=== PATIENT | female | born 1990 | race Caucasian/White ===

== ENCOUNTER 2017-05-26 10:17 | Day surgery (SDC) | payer OTHER ==
[2017-05-24 10:34] VITALS: BMI 27.7
--- NOTE | 2017-05-26 09:21 | HP ---
History & Physical Update - History History: No Change - Physical Physical: No Change - Assessment Assessment: No Change - Plan Plan: No Change (Consent obtained for thyroidectomy, lobectomy or total thyroidectomy. Nerve monitoring. Complications, of bleeding, voice change , hoarseness, weakness of recurrent laryngeal nerve , hypocalcmia, and hypoparathyroidism , explained. Consent obtained. Alternatives explained.)
[2017-05-26] MEDS ORDERED: MIDAZOLAM HCL 2 MG/2 ML SINGLE DOSE VIAL ONE ×2 (13:43)
[2017-05-26] MEDS ORDERED: SUCCINYLCHOLINE CHLORIDE 200 MG/10 ML VIAL ONE (13:49)
[2017-05-26] MEDS ORDERED: PROPOFOL 20 ML ONE ×2 (13:50→14:03)
[2017-05-26] MEDS ORDERED: ePHEDrine SULFATE 50 MG/1 ML AMPULE ONE (14:39)
--- NOTE | 2017-05-26 15:56 | OP ---
Operative Note - Note: Operative Date: 05/26/17 Pre-Operative Diagnosis: Thyroid goiter Operation: Left thyroid lobectomy, use of Nervana nerve monitor, and identification of parathyroid with KATHERIN technic. Findings: Large nodule in left lobe of thyroid, benign. Post-Operative Diagnosis: Same as Pre-op (Unonodular thyroid goiter.) Surgeon: Oliver Abrams Anesthesia: General Specimens Removed: Left lobe of thyroid. Estimated Blood Loss (mls): 10 Instrument used (Debridements only): Nims nerve monitor Operative Report Dictated: Yes
[2017-05-26] MEDS ORDERED: ONDANSETRON 4 MG/2 ML VIAL ONE (16:05)
[2017-05-26] MEDS ORDERED: ONDANSETRON 4 MG/2 ML VIAL IVPUSH PRN (16:12)
[2017-05-26] MEDS ORDERED: PROMETHAZINE HCL 25 MG/1 ML VIAL IVPUSH PRN (16:12)
[2017-05-26] MEDS ORDERED: LACTATED RINGERS SOLUTION 1,000 ML IV SCH (16:15)
[2017-05-26] MEDS: oxyCODONE HCL 5 MG TABLET PO PRN (18:45)
[2017-05-26] MEDS ORDERED: oxyCODONE HCL 5 MG TABLET ONE (18:47)
[2017-05-27] MEDS: oxyCODONE HCL 5 MG TABLET PO PRN (07:14)
[2017-05-27 10:21] VITALS: BP 111/50; PULSE 85; TEMP 98.8
--- NOTE | 2017-05-27 13:15 | OP ---
DATE OF OPERATION: 05/26/2017 PREOPERATIVE DIAGNOSIS: Unilateral thyroid goiter. POSTOPERATIVE DIAGNOSIS: Unilateral thyroid goiter. OPERATIVE PROCEDURE: Left thyroid lobectomy with the use of Nerveana nerve monitoring device. SURGEON: Mayi Abrams MD ANESTHESIA: General. INDICATION FOR PROCEDURE: This 26-year-old woman had an enlarging nodule in the left lobe of the thyroid. She had a FNA which was benign. The mass was expanding in size. The patient was brought in for a thyroid lobectomy. Risks, benefits, and complications were discussed with the patient. Consent was obtained. OPERATIVE DESCRIPTION: The patient was brought to the operating room. General anesthesia was administered. The Nerveana nerve monitoring device was used, including the appropriate endotracheal tube. The patient was positioned with the neck in extension. Timeout was called. The incision was made along a skin crease one fingerbreadth above the clavicle from one sternocleidomastoid muscle to another. This was deepened into the skin, subcutaneous tissue and the platysma. Superior and inferior skin flaps were then raised between the platysma and the deep cervical fascia, superiorly up to the hyoid bone and inferiorly anterior to and below the clavicle on either side. The sternocleidomastoid muscles were freed from a flap on either side. The strap muscles were then divided in the midline from the hyoid bone down to the suprasternal notch. The thyroid gland was exposed. The strap muscles were then retracted and the thyroid gland was exposed. The right lobe of the thyroid gland appeared normal. There was a large nodule, larger than 4 cm in diameter, in the left lobe of the thyroid. This was carefully delivered into the wound. The gland was then mobilized medially. The rest of the gland was normal. It was then decided to do a left thyroid lobectomy. The middle thyroid vein was divided between clips as close to the gland as possible. The superior thyroid vessels were also divided as close to the gland as possible between clips and the Harmonic scalpel. The inferior thyroid vessels were then also identified. This was followed and divided as close to the gland as possible. It was divided between clips and the Harmonic scalpel. Attempt was made to spare the blood supply to the superior and inferior parathyroid glands. This was left intact with its blood supply intact and dissecting medial to the parathyroid, between the thyroid and the parathyroid. The gland was then mobilized medially across the pretracheal fascial plane. The left recurrent laryngeal nerve was identified and preserved. This was monitored using the Nerveana nerve monitoring device with appropriate response to simulation of the recurrent laryngeal nerve. The Ruiz ligament was then divided between clips. The gland was mobilized across the midline and then divided at the isthmus. A Shaina clamp was placed across the isthmus and the gland was divided. The specimen of the left lobe of the thyroid gland with the isthmus was sent to Pathology for frozen section. Frozen section diagnosis was benign. The isthmus was suture ligated with 3-0 Vicryl sutures. Hemostasis was satisfactory. The nerve was intact after completion of the procedure with appropriate response to stimulation of the recurrent laryngeal nerve with the Nerveana nerve monitoring device. The wound was irrigated. Hemostasis was satisfactory. The strap muscles were then approximated with interrupted 3-0 Vicryl sutures, platysma approximated with buried interrupted 3-0 Vicryl sutures, the subcutaneous was approximated with buried interrupted 3-0 Vicryl sutures, and the skin approximated with continuous 4-0 Monocryl sutures in a running subcuticular fashion. Dermabond was applied across the skin edges. Estimated blood loss was less than 10 mL. Sponge count and instrument count were correct. The patient tolerated the procedure well, was extubated, and sent to the recovery room in satisfactory and stable condition. Michelle [id number]
--- NOTE | 2017-05-29 13:28 | PATH ---
Surgical Pathology Report Patient Name: TIMMY DE PAZ [facility]. Rec. #: [id number] /Age/Gender: 1990 (Age: 26) / F Account: [id number] Location: AMBULATORY SURG Taken: 05/26/2017 Received: 05/26/2017 Reported: 05/29/2017 Physicians: Mayi Abrams M.D. Specimen(s) Received LEFT LOBE AND ISTHMUS Clinical History Thyroid goiter Intraoperative Consult Diagnosis Left lobe/Isthmus, touch prep and frozen section: Benign on textile machinery sales representative section. Dr. Bueno, 05/26/17. Final Diagnosis TYROID GLAND, LEFT LOBE AND ISTHMUS, LOBECTOMY: BENIGN NODULAR GOITER WITH DOMINANT ADENOMATOID NODULE (5.1 CM) WITH CYSTIC AND DEGENERATIVE CHANGES. NO MALIGNANCY IDENTIFIED. Electronically Signed Raymond Bueno M.D. Gross Description Specimens C. Fresh for frozen section labeled "left lobe isthmus" and is a 50 gram, 7.5 x 5.3 x 3.8 cm portion of thyroid tissue with a well-demarcated 5.1 cm in greatest dimension nodule with a cystic interior. No indurated or grossly papillary areas are identified. The remainder of the thyroid gland shows slightly nodular red tissue. A touch prep is prepared. A textile machinery sales representative section is frozen and a frozen remainder is divided and submitted in cassettes 1a and 1b. Additional textile machinery sales representative sections are submitted for permanent section in cassettes 2-10. [facility]/05/26/2017 [facility]/05/26/2017
== END 2017-05-27 12:15 | disposition home or self-care (01) ==
LOC: JASUSAT 10:17 → J8W 19:20 → JASUSAT 05-27 12:15
PROVIDERS: ATTEND Specialist
PROC: 0GTG0ZZ Resection of Left Thyroid Gland Lobe, Open Approach (ICD-10-PCS; principal; 2017-05-26 11:30)
DX: E04.1 Nontoxic single thyroid nodule (principal)
CPT/HCPCS: 84703; 88307-TC; 88331-TC; 88333; 94760

== ENCOUNTER 2018-07-15 04:48 | Emergency (ER) | payer OTHER ==
[2018-07-15 05:04] VITALS: BP 122/80; PULSE 98; TEMP 98.2; BMI 27.3
[2018-07-15] MEDS ORDERED: ACETAMINOPHEN INJECTION 100 ML IVPB ONE (05:06)
[2018-07-15] MEDS ORDERED: ACETAMINOPHEN 1000 MG/100 ML VIAL (NON FORMULARY) IVPB ONE (05:06)
[2018-07-15 05:12] LABS: BASO % 0.2 % (0-2.0); EOS % 1.5 % (0-4.5); HEMATOCRIT 38.5 % (32.4-45.2); HEMOGLOBIN 13.1 GM/dL (10.7-15.3); LYMPH % 39.6 % (8-40); MCH 31.3 pg (25.7-33.7); MCHC 33.9 g/dl (32.0-36.0); MEAN CELL VOLUME 92.2 fl (80-96); MONO % 7.3 % (3.8-10.2); NEUT % 51.4 % (42.8-82.8); PLATELET COUNT 257 K/MM3 (134-434); RBC 4.18 M/mm3 (3.60-5.2); RDW 13.4 % (11.6-15.6); WHITE BLOOD COUNT 9.7 K/mm3 (4.0-10.0)
[2018-07-15] MEDS ORDERED: SODIUM CHLORIDE 0.9% 500 ML INFUS.BAG IV ONE (05:12)
--- NOTE | 2018-07-15 05:19 | PDOC ---
History of Present Illness - General Chief Complaint: Pain, Acute Stated Complaint: LEFT LOWER BACK PAIN Time Seen by Provider: 07/15/18 04:59 - History of Present Illness Initial Comments: 07/15/18 05:14 27 yo F w a pmh of asthma, gestational diabetes, is here with sudden onset LLQ flank pain that radiates to the groin. The pain began at 9 pm tonight and was excruciating in nature. The patient did not take anything for the pain but it became too bad for her to bear so she came into the ED. She was lying down when the pain began. Pertinent family hx - sister has hx of kidney stones. She denies recent fevers, chills, or infections. She denies dysuria, frequency, urgency or hematuria. Past History - Past Medical History Allergies/Adverse Reactions: Allergies Allergy/AdvReac Type Severity Reaction Status Date / Time No Known Allergies Allergy Verified 07/15/18 04:59 Home Medications: Ambulatory Orders Montelukast Na [Singulair -] 10 mg PO HS 07/15/18 Oxycodone HCl/Acetaminophen [Percocet 5-325 mg Tablet -] 1 combo PO Q6H PRN #10 tablet MDD 4 07/15/18 Phentermine HCl 37.5 mg PO DAILY 07/15/18 Tamsulosin HCl 0.4 mg PO DAILY #7 capsule 07/15/18 Asthma: Yes Cancer: No Cardiac Disorders: No Diabetes: No (gest,ins.dependant) Disorders: Yes (FALLING BLADDER) HTN: No Seizures: No Thyroid Disease: Yes (GOITER) - Surgical History Abdominal Surgery: Yes (UMBILICAL HERNIA) - Immunization History Immunization Up to Date: Yes - Suicide/Smoking/Psychosocial Hx Smoking Status: No Smoking History: Current every day smoker Have you smoked in the past 12 months: Yes Number of Cigarettes Smoked Daily: 5 Information on smoking cessation initiated: No 'Breaking Loose' booklet given: 08/21/16 Hx Alcohol Use: No Drug/Substance Use Hx: No Substance Use Type: None Hx Substance Use Treatment: No Review of Systems - Review of Systems Comments:: 07/15/18 05:19 CONSTITUTIONAL: Absent: fever, chills, diaphoresis, generalized weakness, malaise, loss of appetite HEENT: Absent: rhinorrhea, nasal congestion, throat pain, throat swelling, difficulty swallowing, mouth swelling, ear pain, eye pain, visual Changes CARDIOVASCULAR: Absent: chest pain, syncope, palpitations, irregular heart rate, lightheadedness , peripheral edema RESPIRATORY: Absent: cough, shortness of breath, dyspnea with exertion, orthopnea, wheezing, stridor, hemoptysis GASTROINTESTINAL: Positive: Abdominal pain Absent: abdominal distension, nausea, vomiting, diarrhea, constipation, melena, hematochezia GENITOURINARY: Positive: Flank pain Absent: dysuria, frequency, urgency, hesitancy, hematuria, genital pain MUSCULOSKELETAL: Absent: myalgia, arthralgia, joint swelling SKIN: Absent: rash, itching, pallor HEMATOLOGIC/IMMUNOLOGIC: Absent: easy bleeding, easy bruising, lymphadenopathy, frequent infections ENDOCRINE: Absent: unexplained weight gain, unexplained weight loss, heat intolerance, cold intolerance NEUROLOGIC: Absent: headache, focal weakness or paresthesias, dizziness, unsteady gait, seizure, mental status changes, bladder or bowel incontinence PSYCHIATRIC: Absent: anxiety, depression, suicidal or homicidal ideation, hallucinations. *Physical Exam - Vital Signs Last Vital Signs Temp Pulse Resp BP Pulse Ox 98.2 F 98 H 20 122/80 99 07/15/18 04:49 07/15/18 04:49 07/15/18 04:49 07/15/18 04:49 07/15/18 04:49 - Physical Exam Comments: 07/15/18 05:20 GENERAL: Patient is lying in the bed writhing in pain. She is Well developed, well nourished. Awake and alert. HEENT: Normocephalic, atraumatic. PERRLA, EOMI. No conjunctival pallor. Sclera are non- icteric. Moist mucous membranes. Oropharynx is clear. NECK: Supple. Full ROM. No JVD. No thyromegaly. No lymphadenopathy. CARDIOVASCULAR: Regular rate and rhythm. No murmurs, rubs, or gallops. Distal pulses are 2+ and symmetric. PULMONARY: No evidence of respiratory distress. Lungs clear to auscultation bilaterally. No wheezing, rales or rhonchi. ABDOMINAL: + LLQ TTP. Otherwise, Soft. Non-tender. Non-distended. No rebound or guarding. No organomegaly. Normoactive bowel sounds. MUSCULOSKELETAL Normal range of motion at all joints. No bony deformities or tenderness. No CVA tenderness. EXTREMITIES: No cyanosis. No clubbing. No edema. No calf tenderness. SKIN: Warm and dry. Normal capillary refill. No rashes. No jaundice. NEUROLOGICAL: Alert, awake, appropriate. Cranial nerves 2-12 intact. Normal speech. Gait is normal without ataxia. PSYCHIATRIC: Cooperative. Good eye contact. Appropriate mood and affect. ED Treatment Course - LABORATORY CBC & Chemistry Diagram: 07/15/18 04:59 07/15/18 04:59 - ADDITIONAL ORDERS Additional order review: 07/15/18 04:59 RBC 4.18 MCV 92.2 MCHC 33.9 RDW 13.4 MPV 9.0 D Neutrophils % 51.4 Lymphocytes % 39.6 D Monocytes % 7.3 D Eosinophils % 1.5 Basophils % 0.2 - Medications Given in the ED: ED Medications Discontinued Medications Generic Name Dose Route Start Last Admin Trade Name Freq PRN Reason Stop Dose Admin Acetaminophen 1,000 mg 07/15/18 05:06 07/15/18 05:10 Ofirmev Injection - IVPB 07/15/18 05:07 1,000 mg ONCE ONE Administration Medical Decision Making - Medical Decision Making 07/15/18 05:22 27 yo F w a hx of asthma, thyroid disorder, gest diabetes presents with intense LLQ flank pain radiating to her groin. Highest on DD: renal colic, ovarian torsion. will rule out Uti, , ectopic Plan: cbc, cmp, hcg, fluids, analgesia, re-assess. UA significant for blood. No signs of infection. Given no Hx of renal colic will get CTAP. CTAP showed a 3 mm distal left ureteral stone which is likely the source of her pain. will DC the patient with instructions to drink lots of fluid, take advil for pain, prescribe tamsulosin, and FU w pcp to make sure she is getting better. 07/15/18 05:46 07/15/18 05:48 07/15/18 06:25 *DC/Admit/Observation/Transfer Diagnosis at time of Disposition: Renal colic on left side - Discharge Dispostion Disposition: HOME Condition at time of disposition: Stable Decision to Admit order: No - Prescriptions Prescriptions: Oxycodone HCl/Acetaminophen [Percocet 5-325 mg Tablet -] 1 combo PO Q6H PRN #10 tablet MDD 4 PRN Reason: Pain Tamsulosin HCl 0.4 mg PO DAILY #7 capsule - Referrals Referrals: Don Colby MD [Primary Care Provider] - Kurtis Mosley MD [Staff Physician] - - Patient Instructions Printed Discharge Instructions: Kidney Stones -- Adult Additional Instructions: You came into the emergency room with severe abdominal pain. We found a kidney stone which is the source of your pain. Please drink lots of fluids to help pass the stone. Take advil and percocet for the pain. Make sure to take tamsulosin once a day for the next week to help the stone pass. 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 Please call the urologist we are referring you to and make an appointment to ensure that your pain is going away and you are not at risk for more stones. Come back to the ER if you develop a bad fever, have pain that you cannot bear, start vomiting, or have any other serious concerns. Print Language: BOTSWANAN - Post Discharge Activity
--- NOTE | 2018-07-15 05:23 | PDOC ---
Attending Attestation - Resident Resident Name: Mike Abdullahi - ED Attending Attestation I have performed the following: I have examined & evaluated the patient, The case was reviewed & discussed with the resident, I agree w/resident's findings & plan, Exceptions are as noted - HPI HPI: 07/15/18 05:38 27y F hx of thyroid disease presents with complains sudden onset of L flank pain since earlier this evening. Pt ntoes the pain was mild intially but has gradually worsened. Pt denies any n/v, fever/chills, vag bleeding or discharge. LMP 2-3 weeks ago, but notes her period is irregular at baseline as she has an IUD. on exam pt appears uncomfotable abd softnontender, no cva tenderness ddx: kidney stones, consdier possible ovarian cyst/torsion will ck UA if +blood will ck CT abdomen - Physicial Exam PE: 07/15/18 22:23 see above - Medical Decision Making ct noted for kidney stone in left distal ureter measuring 3mm no signs of UTI pt feels significantly improved will dc with meds and uro fu with return precautions
[2018-07-15 05:33] LABS: ALBUMIN 4.4 g/dl (3.4-5.0); ANION GAP 7 MMOL/L (8-16); BILIRUBIN,TOTAL 0.4 mg/dL (0.2-1.0); BLOOD UREA NITROGEN 18 mg/dL (7-18); CALCIUM 9.2 mg/dL (8.5-10.1); CHLORIDE 103 mmol/L (98-107); CO2 29 mmol/L (21-32); CREATININE 0.9 mg/dL (0.55-1.3); GLUCOSE,RANDOM 112 mg/dL (74-106); POTASSIUM 4.1 mmol/L (3.5-5.1); SGOT/AST 22 U/L (15-37); SGPT/ALT 20 U/L (13-61); SODIUM 139 mmol/L (136-145); TOT PROT 7.9 g/dl (6.4-8.2)
[2018-07-15] MEDS ORDERED: morphine CARPU-JECT 4 MG/1 ML DISP.SYRIN IVPUSH ONE (05:33)
[2018-07-15 05:34] LABS: ALK PHOS 72 U/L (45-117)
[2018-07-15] MEDS ORDERED: morphine SULFATE 4 MG/ML VIAL ONE (05:34)
[2018-07-15 05:39] LABS: URINE APPEARANCE CLEAR; URINE BILIRUBIN NEGATIVE (<2.0 mg/dL); URINE COLOR YELLOW; URINE GLUCOSE (UA) NEGATIVE (NEGATIVE); URINE KETONE NEGATIVE (NEGATIVE); URINE LEUK ESTERASE NEGATIVE (NEGATIVE); URINE NITRITE NEGATIVE (NEGATIVE); URINE PROTEIN NEGATIVE (NEGATIVE); URINE UROBILINOGEN NEGATIVE mg/dL (0.2-1.0)
[2018-07-15 05:44] LABS: EPI CELLS RARE /HPF (FEW); URINE HYALINE CAST 3 /lpf; URINE MUCUS RARE
[2018-07-15] MEDS ORDERED: KETOROLAC TROMETHAMINE 30 MG/1 ML VIAL IVPUSH ONE (06:24)
[2018-07-15] MEDS ORDERED: KETOROLAC TROMETHAMINE 30 MG/1 ML VIAL ONE (06:31)
== END 2018-07-15 06:51 | disposition home or self-care (01) ==
LOC: JER 04:48
PROC: 3E0337Z Introduction of Electrolytic and Water Balance Substance into Peripheral Vein, Percutaneous Approach (ICD-10-PCS; principal; 2018-07-15)
PROC: 3E033NZ Introduction of Analgesics, Hypnotics, Sedatives into Peripheral Vein, Percutaneous Approach (ICD-10-PCS; 2018-07-15)
PROC: 3E0333Z Introduction of Anti-inflammatory into Peripheral Vein, Percutaneous Approach (ICD-10-PCS; 2018-07-15)
DX: N23 Unspecified renal colic (principal); E07.9 Disorder of thyroid, unspecified; J45.909 Unspecified asthma, uncomplicated; O24.439 Gestational diabetes mellitus in the puerperium, unspecified control
CPT/HCPCS: 36415; 74176-TC; 80053; 81003; 81015; 84702; 84703; 85025; 96374; 96375; 99282-25; J0131

== ENCOUNTER 2022-11-30 09:33 | Inpatient (IN) | payer OTHER ==
[2022-11-30] MEDS: ELECTROLYTE-148 SOLN 1,000 ML IV SCH ×2 (11:40→19:39)
[2022-11-30 11:52] VITALS: BMI 41.2
[2022-11-30] MEDS ORDERED: DINOPROSTONE 10 MG VAGINAL SUPPOSITORY VG STA (12:12)
[2022-11-30 13:00] LABS: BASO % 0.2 % (0-2.0); EOS % 1.1 % (0-4.5); HEMATOCRIT 38.9 % (32.4-45.2); HEMOGLOBIN 13.1 GM/dL (10.7-15.3); LYMPH % 29.2 % (8-40); MCH 30.2 pg (25.7-33.7); MCHC 33.7 g/dl (32.0-36.0); MEAN CELL VOLUME 89.4 fl (80-96); MEAN PLT VOLUME 10.3 fl (7.5-11.1); NEUT % 64.5 % (42.8-82.8); PLATELET COUNT 210 10^3/uL (134-434); RBC 4.35 M/mm3 (3.60-5.2); RDW 15.6 % (11.6-15.6); WHITE BLOOD COUNT 6.6 K/mm3 (4.0-10.0)
[2022-11-30 13:16] LABS: INR 0.94 (0.83-1.09); PROTHROMBIN TIME (PATIENT) 10.8 SEC (9.7-13.0)
[2022-11-30 13:19] LABS: ACTIVATED PTT 28.9 SECONDS (25.2-36.5)
[2022-11-30 13:20] LABS: CALCIUM 8.8 mg/dL (8.5-10.1)
[2022-11-30 13:21] LABS: BLOOD UREA NITROGEN 8.2 mg/dL (7-18)
[2022-11-30 13:24] LABS: CREATININE 0.4 mg/dL (0.55-1.3)
[2022-12-01] MEDS ORDERED: FENTANYL/BUPIVACAINE/NS/PF - PCEA - 50 ML DISP.SYRIN EP ONE (00:21)
[2022-12-01] MEDS ORDERED: OXYTOCIN 20 UNITS in 0.9% NS 20 UNIT/1,000 ML INFUS.BAG IV ONE (00:21)
[2022-12-01] MEDS ORDERED: NALOXONE HCL 0.4 MG/ML VIAL IVPUSH PRN (01:13)
[2022-12-01] MEDS ORDERED: FENTANYL/BUPIVACAINE/NS/PF - PCEA - 50 ML DISP.SYRIN EP SCH (01:15)
[2022-12-01] MEDS: ELECTROLYTE-148 SOLN 1,000 ML IV SCH (01:30)
[2022-12-01] MEDS ORDERED: BENZOCAINE 28 GM HEMORRHOIDAL OINTMENT TP PRN (04:32)
[2022-12-01] MEDS ORDERED: BISACODYL 10 MG SUPP.RECT RC PRN (04:32)
[2022-12-01] MEDS ORDERED: BENZOCAINE 20% 57 GM BOTTLE TP PRN (04:32)
[2022-12-01] MEDS ORDERED: WITCH HAZEL 50% (TUCKS) 40 PAD/JAR PAD TP PRN (04:32)
[2022-12-01] MEDS ORDERED: METHYLERGONOVINE MALEATE 0.2 MG/1 ML AMP IM PRN (04:32)
[2022-12-01] MEDS ORDERED: IBUPROFEN 600 MG TABLET (FP) PO PRN (04:32)
[2022-12-01] MEDS ORDERED: OXYTOCIN 20 UNITS in 0.9% NS 20 UNIT/1,000 ML INFUS.BAG IV SCH (04:45)
[2022-12-01] MEDS: PRENATAL VITAMINS W/ FOLIC ACID TABLET (FP) PO SCH (10:12)
[2022-12-01] MEDS: ACETAMINOPHEN 325 MG TABLET (FP) PO PRN (21:44)
[2022-12-02] MEDS: PRENATAL VITAMINS W/ FOLIC ACID TABLET (FP) PO SCH (09:23)
[2022-12-02] MEDS: ACETAMINOPHEN 325 MG TABLET (FP) PO PRN (09:26)
[2022-12-02 10:28] LABS: BASO % 0.2 % (0-2.0); EOS % 1.2 % (0-4.5); HEMATOCRIT 35.8 % (32.4-45.2); HEMOGLOBIN 12.1 GM/dL (10.7-15.3); MCH 30.2 pg (25.7-33.7); MCHC 33.8 g/dl (32.0-36.0); MEAN CELL VOLUME 89.2 fl (80-96); MEAN PLT VOLUME 9.5 fl (7.5-11.1); MONO % 4.9 % (3.8-10.2); NEUT % 68.7 % (42.8-82.8); PLATELET COUNT 177 10^3/uL (134-434); RBC 4.01 M/mm3 (3.60-5.2); RDW 15.8 % (11.6-15.6); WHITE BLOOD COUNT 8.5 K/mm3 (4.0-10.0)
[2022-12-02] MEDS ORDERED: SENNOSIDES/DOCUSATE COMBO (SENNA PLUS) TABLET (UD) PO PRN (22:00)
[2022-12-03 08:59] VITALS: BP 120/82; PULSE 89; RESP 18; TEMP 97.8
[2022-12-03] MEDS: PRENATAL VITAMINS W/ FOLIC ACID TABLET (FP) PO SCH (10:50)
== END 2022-12-03 12:35 | disposition home or self-care (01) | DRG 560 ==
LOC: JDEL 09:33 → JLDR 10:40 → J3W 12-01 06:32
PROVIDERS: ADMIT Student in an Organized Health Care Education/Training Program; ATTEND Student in an Organized Health Care Education/Training Program
PROC: 3E0P7VZ Introduction of Hormone into Female Reproductive, Via Natural or Artificial Opening (ICD-10-PCS; 2022-11-30)
PROC: 10E0XZZ Delivery of Products of Conception, External Approach (ICD-10-PCS; principal; 2022-12-01)
PROC: 0W8NXZZ Division of Female Perineum, External Approach (ICD-10-PCS; 2022-12-01)
PROC: 0HQ9XZZ Repair Perineum Skin, External Approach (ICD-10-PCS; 2022-12-01)
DX: O41.03X0 Oligohydramnios, third trimester, not applicable or unspecified (principal); O98.52 Other viral diseases complicating childbirth; U07.1 COVID-19; Z3A.38 38 weeks gestation of pregnancy; Z37.0 Single live birth
CPT/HCPCS: 36415; 59025; 59409; 80048; 85025; 85610; 85730; 86780; 86850; 86900; 86901; C9803-CS; U0003; U0005

== ENCOUNTER 2023-02-20 18:48 | Emergency (ER) | payer OTHER ==
[2023-02-20 19:01] VITALS: BP 110/78; PULSE 79; RESP 19; TEMP 98.4; BMI 23.7
[2023-02-20] MEDS ORDERED: ACETAMINOPHEN 1000 MG/100 ML BAG IVPB ONE (20:18)
[2023-02-20] MEDS ORDERED: SODIUM CHLORIDE 0.9% 500 ML INFUS.BAG IV ONE (20:18)
[2023-02-20 20:50] LABS: BASO % 0.2 % (0-2.0); EOS % 1.5 % (0-4.5); HEMATOCRIT 39.8 % (32.4-45.2); HEMOGLOBIN 13.8 GM/dL (10.7-15.3); LYMPH % 27.4 % (8-40); MCH 31.1 pg (25.7-33.7); MCHC 34.6 g/dl (32.0-36.0); MEAN PLT VOLUME 9.3 fl (7.5-11.1); MONO % 4.8 % (3.8-10.2); NEUT % 66.1 % (42.8-82.8); PLATELET COUNT 246 10^3/uL (134-434); RBC 4.42 M/mm3 (3.60-5.2); RDW 14.5 % (11.6-15.6); WHITE BLOOD COUNT 9.1 K/mm3 (4.0-10.0)
[2023-02-20 20:58] LABS: EPI CELLS 10 /uL (0-25.1); HYALINE CASTS 1 /uL (0-3.1); PH,URINE 6.5 (5.0-8.0); URINE APPEARANCE CLEAR; URINE BACTERIA 16 /uL (0-1359); URINE BILIRUBIN NEGATIVE (NEGATIVE); URINE COLOR YELLOW; URINE GLUCOSE (UA) NEGATIVE (NEGATIVE); URINE KETONE NEGATIVE (NEGATIVE); URINE LEUK ESTERASE TRACE (NEGATIVE); URINE NITRITE NEGATIVE (NEGATIVE); URINE PROTEIN NEGATIVE (NEGATIVE); URINE RBC 40 /uL (0-23.9); URINE WBC 95 /uL (0-25.8)
[2023-02-20 21:01] LABS: HCG,QUALITATIVE URINE Negative
[2023-02-20 21:08] LABS: ALBUMIN 4.1 g/dl (3.4-5.0); BLOOD UREA NITROGEN 15.4 mg/dL (7-18)
[2023-02-20 21:10] LABS: CREATININE 0.8 mg/dL (0.55-1.3)
[2023-02-20 21:12] LABS: BILIRUBIN,TOTAL 0.2 mg/dL (0.2-1); TOT PROT 7.5 g/dl (6.4-8.2)
== END 2023-02-20 22:57 | disposition home or self-care (01) ==
LOC: JER 18:48
DX: N20.0 Calculus of kidney (principal); R10.9 Unspecified abdominal pain; M54.50 Low back pain, unspecified; R11.0 Nausea
CPT/HCPCS: 36415; 74176-TC; 80053; 81003; 84703; 85025; 87086; 87186; 99284-25

== ENCOUNTER 2023-05-22 05:25 | Day surgery (SDC) | payer OTHER ==
[2023-05-17 09:41] VITALS: BMI 33.5
[2023-05-22] MEDS ORDERED: MIDAZOLAM HCL 2 MG/2 ML SINGLE DOSE VIAL ONE (16:03)
[2023-05-22] MEDS ORDERED: ONDANSETRON 4 MG/2 ML VIAL ONE (16:05)
[2023-05-22 16:57] VITALS: RESP 18
[2023-05-22 17:12] VITALS: BP 113/65; PULSE 59; TEMP 97.9
== END 2023-05-22 17:45 | disposition home or self-care (01) ==
LOC: JASU-SURG 05:25
PROVIDERS: ATTEND Urology
PROC: 0TF4XZZ Fragmentation in Left Kidney Pelvis, External Approach (ICD-10-PCS; principal; 2023-05-22 14:30)
DX: N20.0 Calculus of kidney (principal)
CPT/HCPCS: 81025

== ENCOUNTER 2023-11-02 20:12 | Emergency (ER) | payer OTHER ==
[2023-11-02 20:19] VITALS: RESP 20; BMI 38.8
[2023-11-02 22:50] VITALS: BP 114/61; PULSE 99; TEMP 98.7
== END 2023-11-02 22:24 | disposition home or self-care (01) ==
LOC: JER 20:12
DX: O98.513 Other viral diseases complicating pregnancy, third trimester (principal); U07.1 COVID-19; Z3A.25 25 weeks gestation of pregnancy; O99.513 Diseases of the respiratory system complicating pregnancy, third trimester; J02.9 Acute pharyngitis, unspecified; R05.9 Cough, unspecified; O99.413 Diseases of the circulatory system complicating pregnancy, third trimester; R07.89 Other chest pain
CPT/HCPCS: 99282-25

== ENCOUNTER 2024-01-19 12:45 | Inpatient (IN) | payer OTHER ==
[2024-01-19 14:13] VITALS: BMI 41.5
[2024-01-19 14:38] LABS: BASO % 0.3 % (0-2.0); EOS % 1.2 % (0-4.5); HEMATOCRIT 35.2 % (32.4-45.2); HEMOGLOBIN 11.7 GM/dL (10.7-15.3); LYMPH % 23.6 % (8-40); MCHC 33.2 g/dl (32.0-36.0); MEAN CELL VOLUME 87.5 fl (80-96); MONO % 3.8 % (3.8-10.2); NEUT % 71.1 % (42.8-82.8); PLATELET COUNT 161 10^3/uL (134-434); RBC 4.03 M/mm3 (3.60-5.2); WHITE BLOOD COUNT 8.2 K/mm3 (4.0-10.0)
[2024-01-19 14:42] LABS: INR 0.95 (0.83-1.09)
[2024-01-19 14:45] LABS: ACTIVATED PTT 26.4 SECONDS (25.2-36.5)
[2024-01-19 14:55] LABS: POTASSIUM 3.9 mmol/L (3.5-5.1)
[2024-01-19 14:56] LABS: CALCIUM 8.8 mg/dL (8.5-10.1)
[2024-01-19 14:57] LABS: BLOOD UREA NITROGEN 12.9 mg/dL (7-18)
[2024-01-19 15:00] LABS: CREATININE 0.6 mg/dL (0.55-1.3)
[2024-01-19] MEDS ORDERED: INSULIN ASPART SLIDING SCALE (NOVOLOG) 1 VIAL SQ ONE (15:48)
[2024-01-19] MEDS: INSULIN (NOVOLOG) ASPART 100 UNITS/ML 10ML VIAL SQ ONE (15:50)
[2024-01-19] MEDS ORDERED: DEXTROSE 5%-LACTATED RINGERS 1,000 ML IV SCH (16:45)
[2024-01-19] MEDS: DINOPROSTONE 10 MG VAGINAL SUPPOSITORY VG ONE (17:12)
[2024-01-20] MEDS: ELECTROLYTE-148 SOLN 1,000 ML IV SCH (08:10)
[2024-01-20] MEDS: MISOPROSTOL 25 MCG TABLET (COMPOUNDED BY PHARMACY) BUC ONE ×2 (09:48→13:52)
[2024-01-20] MEDS: INSULIN ASPART SLIDING SCALE (NOVOLOG) 1 VIAL SQ SCH ×3 (13:16→15:18)
[2024-01-20] MEDS ORDERED: INSULIN (NOVOLOG) ASPART 100 UNITS/ML 10ML VIAL ONE (14:23)
[2024-01-20] MEDS: SODIUM CHLORIDE 1,000 ML IV SCH (18:42)
[2024-01-20 19:25] VITALS: RESP 18
[2024-01-20] MEDS ORDERED: OXYTOCIN 30 UNITS in 0.9% NS 30 UNIT/500 ML INFUS.BAG IVPB ONE (19:28)
[2024-01-20] MEDS: OXYTOCIN 30 UNITS in 0.9% NS 30 UNIT/500 ML INFUS.BAG IVPB SCH (19:30)
[2024-01-20] MEDS ORDERED: FENTANYL/BUPIVACAINE/NS/PF - PCEA - 50 ML DISP.SYRIN EP ONE (22:36)
[2024-01-20] MEDS ORDERED: NALOXONE HCL 0.4 MG/ML VIAL IVPUSH PRN (22:50)
[2024-01-20] MEDS ORDERED: LIDO 2%/EPI 1:200000 PRESRVFRE (20 ML SDVIAL) ONE (22:52)
[2024-01-20] MEDS ORDERED: BUPIVACAINE HCL/PF 0.25% (2.5MG/ML) 10 ML VIAL ONE (22:52)
[2024-01-20] MEDS: FENTANYL/BUPIVACAINE/NS/PF - PCEA - 50 ML DISP.SYRIN EP SCH (23:05)
[2024-01-20] MEDS ORDERED: OXYTOCIN 20 UNITS in 0.9% NS 20 UNIT/1,000 ML INFUS.BAG IV ONE (23:36)
[2024-01-20] MEDS ORDERED: LIDOCAINE HCL 1% PRESERVATIVE FREE - 30ML VIAL ONE (23:36)
[2024-01-20] MEDS: OXYTOCIN 20 UNITS in 0.9% NS 20 UNIT/1,000 ML INFUS.BAG IV SCH (23:50)
[2024-01-20] MEDS ORDERED: MISOPROSTOL 200 MCG TABLET ONE (23:51)
[2024-01-21] MEDS ORDERED: IBUPROFEN 600 MG TABLET (FP) PO PRN (00:14)
[2024-01-21] MEDS ORDERED: METHYLERGONOVINE MALEATE 0.2 MG/1 ML AMP IM PRN (00:14)
[2024-01-21] MEDS ORDERED: CEFAZOLIN SODIUM 2 GM VIAL ONE (01:10)
[2024-01-21] MEDS ORDERED: DEXTROSE 5%-WATER 100 ML IVPB ONE (01:11)
[2024-01-21] MEDS: CEFAZOLIN SODIUM 2 GM in DEXTROSE 5%-WATER 100 ML IVPB ONE (01:20)
[2024-01-21] MEDS ORDERED: ACETAMINOPHEN 325 MG TABLET (FP) ONE (02:08)
[2024-01-21] MEDS: ACETAMINOPHEN 325 MG TABLET (FP) PO PRN (02:08)
[2024-01-21] MEDS: PRENATAL VITAMINS W/ FOLIC ACID TABLET (FP) PO SCH (09:44)
[2024-01-21] MEDS: FERROUS SO4 325 MG TABLET (FP) PO SCH (09:44)
[2024-01-21] MEDS ORDERED: FENTANYL CITRATE/PF 50 MCG/ML VIAL ONE (11:30)
[2024-01-21] MEDS: MISOPROSTOL 200 MCG TABLET PR SCH (11:36)
[2024-01-22] MEDS ORDERED: BISACODYL 10 MG SUPP.RECT RC PRN (00:14)
[2024-01-22 06:39] LABS: BASO % 0.4 % (0-2.0); EOS % 1.8 % (0-4.5); HEMATOCRIT 30.5 % (32.4-45.2); HEMOGLOBIN 10.2 GM/dL (10.7-15.3); LYMPH % 32.5 % (8-40); MCH 29.5 pg (25.7-33.7); MCHC 33.6 g/dl (32.0-36.0); MEAN CELL VOLUME 87.8 fl (80-96); MEAN PLT VOLUME 10.1 fl (7.5-11.1); MONO % 5.7 % (3.8-10.2); NEUT % 59.6 % (42.8-82.8); PLATELET COUNT 154 10^3/uL (134-434); RBC 3.47 M/mm3 (3.60-5.2); RDW 15.1 % (11.6-15.6); WHITE BLOOD COUNT 8.6 K/mm3 (4.0-10.0)
[2024-01-22] MEDS: SIMETHICONE 80 MG TAB.CHEW (FP) PO PRN (08:29)
[2024-01-22 11:49] VITALS: BP 131/86; PULSE 80; TEMP 98.1
== END 2024-01-22 13:00 | disposition home or self-care (01) | DRG 560 ==
LOC: JLDR 12:45 → J3W 01-21 02:30
PROVIDERS: ADMIT Obstetrics & Gynecology; ATTEND Obstetrics & Gynecology
PROC: 10E0XZZ Delivery of Products of Conception, External Approach (ICD-10-PCS; principal; 2024-01-20)
PROC: 3E0P7VZ Introduction of Hormone into Female Reproductive, Via Natural or Artificial Opening (ICD-10-PCS; 2024-01-20)
DX: O41.03X0 Oligohydramnios, third trimester, not applicable or unspecified (principal); O24.424 Gestational diabetes mellitus in childbirth, insulin controlled; Z3A.37 37 weeks gestation of pregnancy; Z37.0 Single live birth
CPT/HCPCS: 36415; 80048; 82962; 85025; 85610; 85730; 86780; 86850; 86900; 86901

== ENCOUNTER 2024-01-27 20:17 | Emergency (ER) | payer OTHER ==
[2024-01-27 20:21] VITALS: BMI 40.0
[2024-01-27] MEDS ORDERED: morphine SULFATE 4 MG/ML VIAL ONE (20:35)
[2024-01-27] MEDS: morphine CARPU-JECT 4 MG/1 ML DISP.SYRIN IVPUSH ONE (20:47)
[2024-01-27] MEDS ORDERED: ACETAMINOPHEN INJECTION 100 ML IVPB ONE (20:56)
[2024-01-27 21:03] LABS: BASO % 0.3 % (0-2.0); EOS % 2.6 % (0-4.5); HEMATOCRIT 37.2 % (32.4-45.2); HEMOGLOBIN 12.2 GM/dL (10.7-15.3); LYMPH % 34.8 % (8-40); MCHC 32.8 g/dl (32.0-36.0); MEAN CELL VOLUME 88.3 fl (80-96); MEAN PLT VOLUME 8.8 fl (7.5-11.1); MONO % 7.5 % (3.8-10.2); NEUT % 54.8 % (42.8-82.8); PLATELET COUNT 282 10^3/uL (134-434); RBC 4.21 M/mm3 (3.60-5.2); RDW 15.7 % (11.6-15.6)
[2024-01-27 21:22] LABS: POTASSIUM 4.2 mmol/L (3.5-5.1)
[2024-01-27 21:24] LABS: ALBUMIN 3.1 g/dl (3.4-5.0); BLOOD UREA NITROGEN 11.9 mg/dL (7-18); CALCIUM 9.5 mg/dL (8.5-10.1)
[2024-01-27 21:27] LABS: CREATININE 0.7 mg/dL (0.55-1.3)
[2024-01-27 21:29] LABS: BILIRUBIN,TOTAL 0.1 mg/dL (0.2-1); TOT PROT 7.1 g/dl (6.4-8.2)
[2024-01-27] MEDS: ACETAMINOPHEN 1000 MG/100 ML BAG IVPB ONE (21:35)
[2024-01-27] MEDS ORDERED: LABETALOL HCL 20 MG/4 ML VIAL ONE (21:39)
[2024-01-27 21:50] LABS: EPI CELLS >36 /uL (0-25.1); HYALINE CASTS 5 /uL (0-3.1); URINE APPEARANCE CLOUDY; URINE BACTERIA 2508 /uL (0-1359); URINE BILIRUBIN NEGATIVE (NEGATIVE); URINE COLOR ORANGE; URINE GLUCOSE (UA) NEGATIVE (NEGATIVE); URINE KETONE NEGATIVE (NEGATIVE); URINE LEUK ESTERASE 2+ (NEGATIVE); URINE NITRITE NEGATIVE (NEGATIVE); URINE PROTEIN 2+ (NEGATIVE); URINE RBC 15 /uL (0-23.9); URINE WBC 788 /uL (0-25.8)
[2024-01-27] MEDS ORDERED: KETOROLAC TROMETHAMINE 15 MG/ML VIAL ONE (22:56)
[2024-01-27] MEDS: KETOROLAC TROMETHAMINE 15 MG/ML VIAL IVPUSH ONE (23:02)
[2024-01-27] MEDS: LABETALOL HCL 5 MG/1 ML (100MG/20 ML VIAL) IVPUSH ONE (23:41)
[2024-01-27] MEDS: MAGNESIUM 4GM/H20 - 4 GM/100 ML IVPB IVPB SCH (23:41)
[2024-01-27 23:43] LABS: EPI CELLS 20 /uL (0-25.1); HYALINE CASTS 0 /uL (0-3.1); URINE APPEARANCE CLEAR; URINE BACTERIA 508 /uL (0-1359); URINE BILIRUBIN NEGATIVE (NEGATIVE); URINE COLOR YELLOW; URINE GLUCOSE (UA) NEGATIVE (NEGATIVE); URINE KETONE NEGATIVE (NEGATIVE); URINE LEUK ESTERASE TRACE (NEGATIVE); URINE NITRITE NEGATIVE (NEGATIVE); URINE PROTEIN TRACE (NEGATIVE); URINE RBC 10 /uL (0-23.9); URINE WBC 150 /uL (0-25.8)
[2024-01-27 23:51] VITALS: BP 121/71; PULSE 66; RESP 18; TEMP 98
== END 2024-01-27 23:55 | disposition home or self-care (01) ==
LOC: JER 20:17
PROC: 3E030NZ Introduction of Analgesics, Hypnotics, Sedatives into Peripheral Vein, Open Approach (ICD-10-PCS; principal; 2024-01-27)
PROC: 3E0303Z Introduction of Anti-inflammatory into Peripheral Vein, Open Approach (ICD-10-PCS; 2024-01-27)
PROC: 3E030NZ Introduction of Analgesics, Hypnotics, Sedatives into Peripheral Vein, Open Approach (ICD-10-PCS; 2024-01-27)
DX: O99.893 Other specified diseases and conditions complicating puerperium (principal); R10.30 Lower abdominal pain, unspecified; O72.1 Other immediate postpartum hemorrhage
CPT/HCPCS: 36415; 76830-TC; 80053; 81003; 85025; 87086; 99284-25; J0131

== ENCOUNTER 2024-06-12 04:40 | Day surgery (SDC) | payer OTHER ==
[2024-06-10 12:47] VITALS: BMI 35.9
[2024-06-12] MEDS: ceFAZolin SODIUM 1 GM VIAL IVPB ONE
[2024-06-12] MEDS ORDERED: oxyCODONE HCL 5 MG TABLET PO PRN (12:27)
[2024-06-12] MEDS ORDERED: PROPOFOL 40 ML ONE (12:36)
[2024-06-12] MEDS ORDERED: MIDAZOLAM HCL 2 MG/2 ML SINGLE DOSE VIAL ONE (12:36)
[2024-06-12] MEDS ORDERED: KETOROLAC TROMETHAMINE 30 MG/1 ML VIAL ONE (12:37)
[2024-06-12] MEDS ORDERED: ONDANSETRON 4 MG/2 ML VIAL ONE ×2 (12:37→14:25)
[2024-06-12] MEDS: IODINE/POTASSIUM IODIDE 5%/10% 14 ML BOTTLE NR ONE (13:37)
[2024-06-12] MEDS ORDERED: DEXAMETHASONE SOD PHOSPHATE 4 MG/1 ML VIAL ONE (14:01)
[2024-06-12] MEDS ORDERED: ACETAMINOPHEN INJECTION 100 ML IVPB ONE (14:11)
[2024-06-12] MEDS: LACTATED RINGERS SOLUTION 1,000 ML IV SCH (14:13)
[2024-06-12] MEDS: ACETAMINOPHEN 1000 MG/100 ML BAG IVPB ONE (14:13)
[2024-06-12] MEDS: ONDANSETRON 4 MG/2 ML VIAL IVPUSH PRN (14:27)
[2024-06-12] MEDS ORDERED: HALOPERIDOL LACTATE 5 MG/ML ONE (14:41)
[2024-06-12] MEDS: HALOPERIDOL DECANOATE 500 MG/5ML MDV IM SCH (14:58)
[2024-06-12] MEDS ORDERED: HALOPERIDOL LACTATE 5 MG/ML IM SCH (15:45)
[2024-06-12 16:33] VITALS: RESP 16
[2024-06-12 17:35] VITALS: BP 100/60; PULSE 63; TEMP 97.3
== END 2024-06-12 17:20 | disposition home or self-care (01) ==
LOC: JASU-SURG 04:40
PROVIDERS: ATTEND Obstetrics & Gynecology
PROC: 0UBC7ZX Excision of Cervix, Via Natural or Artificial Opening, Diagnostic (ICD-10-PCS; principal; 2024-06-12 12:00)
PROC: 0UH97HZ Insertion of Contraceptive Device into Uterus, Via Natural or Artificial Opening (ICD-10-PCS; 2024-06-12 12:00)
DX: N87.1 Moderate cervical dysplasia (principal)
CPT/HCPCS: 57522; 58300; J7298; 81025; 88305-TC; 88307-TC; 88341-TC; 88342-TC; 94760; J0131